=== PATIENT | male | born 1990 | race African-American/Black ===

== ENCOUNTER 2017-10-05 18:01 | Emergency (ER) | payer MEDICAID, OTHER ==
[~2017-10-05] VITALS: Ht 180.3 cm; Wt 102.3 kg
[2017-10-05 19:19] VITALS: BP 137/79
== END 2017-10-05 20:37 | disposition home or self-care (01) ==
LOC: EMS 18:02
DX: R07.9 Chest pain, unspecified (principal); R05 Cough
CPT/HCPCS: 93005; 99285